=== PATIENT | female | born 1995 | race African-American/Black ===

== ENCOUNTER 2018-10-05 05:45 | Inpatient (IN) | payer OTHER ==
[~2018-10-05] VITALS: Ht 172.7 cm; Wt 99.8 kg
[2018-10-05 06:00] VITALS: Ht 172.7 cm; Wt 99.8 kg
[2018-10-05] MEDS ORDERED: LACTATED RINGER'S 1,000 ML IV SCH (06:03)
[2018-10-05] MEDS ORDERED: LACTATED RINGER'S 1,000 ML IV PRN (06:03)
[2018-10-05] MEDS ORDERED: OXYTOCIN 30 UNITS/LR 500 ML IV SCH ×3 (06:30→07:15)
[2018-10-05] MEDS ORDERED: BUTORPHANOL 2 MG INJ IV PRN (06:30)
[2018-10-05] MEDS ORDERED: MISOPROSTOL 200 MCG TAB PR PRN ×2 (06:30→07:30)
[2018-10-05] MEDS ORDERED: OXYTOCIN 30 UNITS/LR 500 ML IV PRN ×2 (06:30→07:30)
[2018-10-05] MEDS ORDERED: CARBOPROST 250 MCG INJ IM PRN ×2 (06:30→07:30)
[2018-10-05] MEDS ORDERED: IBUPROFEN 600 MG TAB PO PRN (06:30)
[2018-10-05] MEDS ORDERED: AMPICILLIN 2 GM/NS (PMX) 100 ML IV ONE (06:30)
[2018-10-05] MEDS ORDERED: METHYLERGONOVINE 0.2 MG INJ IM PRN ×2 (06:30→07:30)
[2018-10-05] MEDS ORDERED: LIDOCAINE 1% (MPF) 30 ML INJ INJ PRN (06:30)
[2018-10-05] MEDS ORDERED: OXYTOCIN 10 UNIT INJ IM ONE (06:30)
--- NOTE | 2018-10-05 07:10 | HP ---
Date/Time of Note Date/Time of Note DATE: 10/05/18 TIME: 07:05 OB - History Hx of Present Free Text/Dictation October 05, 2018 Estimated Due Date: Oct 07, 2018 : 3 Para: 2 Care: Other (No records are available) Other Concerns: 23-year-old -[place]er G3, P2 female presented in active labor. She reports her EDC October 07, 2018. She presented with painful contractions and was noted to be 7 to 8 cm dilated in triage. She was immediately transferred to labor and delivery and when I was called for delivery and attended to the room patient delivered a viable baby on the bed due to significant urge to push and precipitous delivery. Nurse was at the bedside. No records were available. Patient reports her care with [facility] clinic in [place]. She denies any complication during course. She accompanied by her partne partner appeared to be agitated. Please see delivery note Past Family/Social History * Past Medical, Surgical, Family and Obstetric Histories reviewed from chart. OB Admission Exam Physical Exam HEENT: WNL Abdomen: WNL Extremities: Normal Reflexes: Normal Cervical Dilatation: other Station: Other (When I arrived to the patient bedside patient delivered a baby on the bed and nurse was at the bedside. I took over and clamped and cut the cord. Baby was a viable male with 8 and 9. Weight 2885. Please see the delivery note. Placenta was delivered shortly after delivery of the baby intact. Fundus was firm. Perineum evaluated. First-degree bilateral labial laceration noted that did not require any repair. EBL 200 cc.) OB Assessment/Plan Other Assessment: IUP at 39 weeks and 5 days Precipitous delivery No records are available Patient and partner behavior questionable for possible substance abuse Patient did not cooperate to provide urine sample. Cord specimen will be sent for drug screen Will be sent to pathology for evaluation Will attempt to obtain any records from clinic the patient claims that she has care Routine care food service worker hospital consultation NICU will be notified KARMA CRUZ MD Oct 05, 2018 07:10
--- NOTE | 2018-10-05 07:15 | LDN ---
Date/Time of Note Date/Time of Note DATE: 10/05/18 TIME: 07:11 Delivery Summary October 05, 2018 Patient is a multiparous -[place] Citizen female who presented with painful contraction and active labor. She presented in triage and shortly after arrival was transferred to the delivery room. I was called due to patient's significant urge to push. I rushed to the room. Upon my arrival baby had already delivered on the bed, precipitous delivery. RN was at the bedside. I took over. Baby was a viable healthy-appearing male . Apgars 8 and 9. Cord was clamped and cut. Mouth and nose were suctioned immediately and baby was transferred to warm. The baby was then handed to the waiting nursing. Placenta was then delivered shortly after delivery of the baby intact and complete. Fundus was firm at the end of the delivery. Perineum evaluated. First-degree bilateral inner labial laceration to the size of about 2 to 3 cm noted that did not require any repair due to nonbleeding. Hemostasis was otherwise complete. EBL 200 cc. Patient and her partner's behavior was questionable for possible substance abuse. No records were available. Patient claims that she had care at [facility]. No records were available. She denies having any complication during her course. Apparently attempted to obtain IV line by nursing staff at the time of arrival was unsuccessful x2. Placenta Delivered: Spontaneously Meconium: none Episiotomy: No Indication for episiotomy N/AA Perineal laceration: 1 Laceration repair: First-degree bilateral laceration. Did not require any repair. Laceration was inner side of both labia minora. Anesthesia type: None Estimated blood loss: 200 Sponge & Needle done & correct: Yes All needle counts correct: Yes Any foreign bodies felt in the: No Infant Delivery Information Sex Infant Sex: male Apgars 1 Minute: 8 5 Minute: 9 Suctioning Nose & mouth suctioned at addis: Yes Delee suction performed: Yes Umbilical Cord Umbilical cord with: 3 Vessels Cord Blood was obtained: Yes KARMA CRUZ MD Oct 05, 2018 07:14
[2018-10-05] MEDS ORDERED: NACL 0.9% 3 ML SYG IV SCH (07:30)
[2018-10-05] MEDS: IBUPROFEN 600 MG TAB PO SCH ×4 (07:30→23:53)
[2018-10-05] MEDS ORDERED: HYDROCODONE/APAP (5/325) TAB PO PRN (07:30)
[2018-10-05] MEDS ORDERED: ZOLPIDEM 5 MG TAB PO PRN (07:30)
[2018-10-05] MEDS ORDERED: LANOLIN HPA 1 PKT TOP PRN (07:30)
[2018-10-05] MEDS ORDERED: ONDANSETRON 4 MG INJ IV PRN (07:30)
[2018-10-05] MEDS ORDERED: DIPHENHYDRAMINE 25 MG CAP PO PRN (07:30)
[2018-10-05] MEDS ORDERED: WITCH HAZEL/GLYCERIN PAD PR PRN (07:30)
--- NOTE | 2018-10-05 07:42 | TRIAGE ---
OB Triage Datetime Report Generated by CPN: 10/05/2018 07:42 Datetime: 10/05/2018 07:31 Stage of : Recovery Pain Assessment Pain Scale: 0 Pain Presence: None/Denies Pain Type: N/A Datetime: 10/05/2018 07:16 Stage of : Recovery Pain Assessment Pain Scale: 0 Pain Presence: None/Denies Pain Type: N/A Datetime: 10/05/2018 07:00 Stage of : Recovery Pain Assessment Pain Scale: 0 Pain Presence: None/Denies Pain Type: N/A Datetime: 10/05/2018 06:46 Stage of : Recovery Pain Assessment Pain Scale: 0 Pain Presence: None/Denies Pain Type: N/A Datetime: 10/05/2018 06:25 Stage of : Recovery Maternal Assessment Temperature Route: Oral Pain Assessment Pain Scale: 0 Pain Presence: None/Denies Pain Type: N/A Datetime: 10/05/2018 06:19 Time of Arrival: 10/05/2018 06:01 EGA: 39.5 Arrived By: Stretcher Arrived From: OB TRIAGE Membranes Ruptured Date/Time: 10/05/2018 06:01 Datetime: 10/05/2018 06:03 Heart Rate FHR Baseline Rate: 120 Monitor Mode: External US Comments: AUSCULTATED Datetime: 10/05/2018 06:01 Assessment Type: Admission Assessment Pain Assessment Comments: UNABLE TO ASSESS, PT IS ABOUT TO DELIVER. Vaginal Exam Dilatation (cms): 10.0 Effacement (%): 100 Station: 2 Exam By: SHRUTI BROWN RN Membrane Status: Ruptured Membranes Rupture Method: Spontaneous Amniotic Fluid Color: Light Meconium Amniotic Fluid Amount: Copious Amniotic Fluid Odor: Normal Presentation 'A': Cephalic Datetime: 10/05/2018 05:47 Heart Rate FHR Baseline Rate: 155 Monitor Mode: External US Datetime: 10/05/2018 05:45 Stage of : OB Triage Labor Evaluation Monitor Mode: External Contraction Comments: [place] applied Datetime: 10/05/2018 05:43 Stage of : OB Triage Vaginal Exam Dilatation (cms): 6.0 Effacement (%): 90 Station: 0 Exam By: CONSUELO Valenzuela Membrane Status: Bulging Vaginal Bleeding: None Cervix, Consistency: Soft Cervix, Position: Midposition Datetime: 10/05/2018 05:40 Time of Arrival: 10/05/2018 05:39 Arrived By: Wheelchair Chief Complaint: UCs Movement: Present Contractions: Regular Rupture of Membranes: Denies Vaginal Bleeding: None Vaginal Discharge: Present Abdominal Trauma: Not Applicable Patient Complaints: Contractions; Cramping; Back Pain Additional Patient Complaints: Unable to obtain information from pt. Pt screaming _ writhing in pablo n. Not willing to answer questions, just asking for epidural. Initial Plan: Monitor, VE
[2018-10-05 08:00] VITALS: BP 133/70; PULSE 70; RESP 18
[2018-10-05 08:30] VITALS: BP 134/80; PULSE 77; RESP 18
[2018-10-05] MEDS ORDERED: AMPICILLIN 1 GM/NS (PMX) 50 ML IV SCH (10:30)
[2018-10-05] MEDS: SENNA/DOCUSATE NA (8.6MG/50MG) TAB PO SCH ×2 (11:00→21:26)
[2018-10-05 15:53] VITALS: BP 113/61; PULSE 77; RESP 18
[2018-10-05 16:12] VITALS: BP 113/61; PULSE 77; RESP 18
[2018-10-05 20:00] VITALS: BP 114/67; PULSE 70; RESP 20
[2018-10-06 04:47] VITALS: BP 118/65; PULSE 70; RESP 20
[2018-10-06] MEDS: IBUPROFEN 600 MG TAB PO SCH ×3 (05:33→17:03)
[2018-10-06 07:30] VITALS: BP 113/57; PULSE 76; RESP 18
[2018-10-06] MEDS: SENNA/DOCUSATE NA (8.6MG/50MG) TAB PO SCH ×2 (09:04→21:00)
--- NOTE | 2018-10-06 12:04 | QN ---
Documentation Comment no specific complaints vss afebrile fundus firm lochia min calf neg no antepartum and lab done due to patient's refusal A #1 P as ordered DAPHNE ABERNATHY MD Oct 06, 2018 12:04
[2018-10-06 15:48] VITALS: BP 113/65; PULSE 78; RESP 18
[2018-10-06 19:30] VITALS: BP 97/59; PULSE 74; RESP 18
--- NOTE | 2018-10-07 22:43 | DELSUM ---
Delivery Summary A-C Datetime Report Generated by CPN: 10/07/2018 22:43 DELIVERY PERSONNEL Otc Clerk: Lemus, Moris MATERNAL INFORMATION Delivery Anesthesia: None Medications in Delivery: NONE Delivery QBL (ml): 200 Placenta Cultured: No Maternal Complications: Precip Labor <3hrs RN Comments: SAURABH SANCHEZ RN AND DR. CRUZ AT BEDSIDE LABOR SUMMARY EDC: 10/07/2018 00:00 No. Babies in Womb: 1 Attempted: No Labor Anesthesia: None LABOR INFORMATION Reason for Induction: Not Applicable Onset of Labor: 10/04/2018 18:00 Complete Dilatation: 10/05/2018 06:01 Group B Beta Strep: Done, Result Unknown Antibiotics # of Doses: 0 Steroids Given: None Reason Steroids Not Administered: Not Applicable MEMBRANES Membranes Rupture Method: Spontaneous Rupture of Membranes: 10/05/2018 06:01 Length of Rupture (hr): 0.03 Amniotic Fluid Color: Light Meconium Amniotic Fluid Amount: Copious Amniotic Fluid Odor: Normal STAGES OF LABOR Stage 1 hr: 12 Stage 1 min: 1 Stage 2 hr: 0 Stage 2 min: 2 Stage 3 hr: 0 Stage 3 min: 4 Total Time in Labor hr: 12 Total Time in Labor min: 7 VAGINAL DELIVERY Episiotomy: None Laceration Extension: First Degree Other Laceration: BILATERAL LABIAL LACERTION (NO REPAIR NEEDED PER DR. CRUZ) Laceration Repair: No Initial Vag Sponge Count: 10 Final Vag Sponge Count: 10 Initial Vag Sharps Count: 1 Final Vag Sharps Count: 1 Sponge Count Correct: Yes Sharps Count Correct: Yes BABY A INFORMATION Infant Delivery Date/Time: 10/05/2018 06:03 Method of Delivery: Vaginal Born in Route : No : N/A Forceps: N/A Vacuum Extraction: N/A Shoulder Dystocia : N/A SHOULDER DYSTOCIA BABY A Delivery Date/Time: 10/05/2018 06:03 PRESENTATION/POSITION BABY A Presentation: Cephalic Cephalic Presentation: Vertex Vertex Position: Left Occipital Anterior Breech Presentation: N/A PLACENTA INFORMATION BABY A Placenta Delivery Time : 10/05/2018 06:07 Placenta Method of Delivery: Manual Removal Placenta Status: Delivered SCORES BABY A Heart Rate 1 min: >100 bpm Resp Effort 1 min: Good Cry Reflex Irritability 1 min: Cough/Sneeze/Pulls Away Muscle Tone 1 min: Active Motion Color 1 min: Blue/Pale Resuscitation Effort 1 min: Tactile Stimulation SCORE 1 MIN: 8 Heart Rate 5 min: >100 bpm Resp Effort 5 min: Good Cry Reflex Irritability 5 min: Cough/Sneeze/Pulls Away Muscle Tone 5 min: Active Motion Color 5 min: Body [place], Extremit Blue Resuscitation Effort 5 min: N/A SCORE 5 MIN: 9 INFORMATION BABY A Gestational Age at Delivery: 39.5 Gestational Status: Full Term- 39- 40.6 Weeks Infant Outcome : Liveborn, with signs of life Condition : Stable Sex: Male IDENTIFICATION/MEDS BABY A ID Band Number: [id number] ID Band Location: Right Leg; Left Arm Sensor Applied: Yes Sensor Number: [id number] Sensor Location : Cord Clamp Vitamin K Given : Not Given Erythromycin Given: Not Given WEIGHT/LENGTH BABY A Birthweight (gm): 2885 Weight (lb): 6 Infant Weight (oz): 6 Length (in): 19.00 Infant Length (cm): 48.26 CORD INFORMATION BABY A No. Cord Vessels: 3 Nuchal Cord : N/A Cord Blood Taken: Yes Banking/Donate Info: N/A Infant Suction: Mouth; Nose ASSESSMENT BABY A Complications: None Physical Findings at Delivery: Within Normal Limits Respirations: Appears Normal Compensation Specialist/ALS Called : No Infant Care By: SADAF CORDERO Transferred To: Remains with Mother
== END 2018-10-06 22:30 | disposition left against medical advice (07) | DRG 807 ==
LOC: L-D 05:45 → OBT 05:45 → L-D 05:49 → OBT 05:49 → PP1 08:04
PROVIDERS: ADMIT Obstetrics & Gynecology Obstetrics; ATTEND Obstetrics & Gynecology Obstetrics
PROC: 10E0XZZ Delivery of Products of Conception, External Approach (ICD-10-PCS; principal; 2018-10-05)
DX: O62.3 Precipitate labor (principal); Z37.0 Single live birth; Z3A.39 39 weeks gestation of pregnancy; O70.0 First degree perineal laceration during delivery
CPT/HCPCS: 88307; J2590; J7120